=== PATIENT | female | born 1990 | race Caucasian/White ===

== ENCOUNTER 2019-05-05 19:54 | Emergency (ER) | payer MEDICAID ==
[~2019-05-05] VITALS: Ht 170.2 cm; Wt 60.0 kg
[2019-05-05] MEDS ORDERED: SODIUM CHLORIDE 0.9% 1,000 ML IV ONE (21:59)
[2019-05-05 22:43] LABS: BASOPHILS % 0.6 % (0.0-2.0); EOSINOPHILS % 2.7 % (0.0-5.0); HEMATOCRIT. 36.1 % (36.0-48.0); HEMOGLOBIN. 12.3 g/dL (12.0-16.0); LYMPHOCYTES % 31.9 % (20.0-50.0); MEAN CORPUSCULAR HEMOGLOBIN 32.5 pg (28.0-32.0); MEAN CORPUSCULAR VOLUME 95.5 fL (81.0-99.0); MEAN PLATELET VOLUME 8.2 fl (7.4-10.4); MONOCYTES % 5.3 % (2.0-8.0); NEUTROPHILS % 59.5 % (40.0-76.0); PLATELET 169 x1000/uL (130-400); RED BLOOD CELL COUNT 3.78 mill/uL (4.2-5.4); RED CELL DISTRIBUTION WIDTH 13.5 % (11.6-14.6)
[2019-05-05 22:49] LABS: CHLORIDE 111 mEq/L (98-107)
[2019-05-05 22:54] LABS: ETHANOL BLOOD < 10 mg/dL
[2019-05-05 23:34] LABS: CLARITY URINE CLOUDY (CLEAR); COLOR URINE YELLOW (YELLOW); KETONES URINE NEGATIVE (NEGATIVE); LEUKOCYTE ESTERASE URINE NEGATIVE (NEGATIVE); NITRITE URINE NEGATIVE (NEGATIVE); OCCULT BLOOD URINE 1+ (NEGATIVE); PH URINE 6.5 (4.5-8.0); PROTEIN URINE NEGATIVE (NEGATIVE); SPECIFIC GRAVITY URINE 1.013 (1.005-1.030); UROBILINOGEN URINE 0.2 E.U./dL (0.2-1.0)
[2019-05-05 23:55] LABS: *BENZODIAZEPINES SCREEN URINE NEGATIVE (NEGATIVE); *COCAINE SCREEN URINE NEGATIVE (NEGATIVE)
[2019-05-05 23:56] LABS: *AMPHETAMINES SCREEN URINE NEGATIVE (NEGATIVE); *BARBITURATES SCREEN URINE NEGATIVE (NEGATIVE); METHADONE URINE SCREEN NEGATIVE (NEGATIVE); OPIATES URINE SCREEN NEGATIVE (NEGATIVE); PHENCYCLIDINE URINE SCREEN NEGATIVE (NEGATIVE)
[2019-05-05 23:57] LABS: CANNABINOID URINE SCREEN PRESUMTIVE POSITIVE (NEGATIVE)
[2019-05-06] MEDS ORDERED: LORAZEPAM 2MG/ML CPJ IM STA (03:32)
[2019-05-06] MEDS ORDERED: LORAZEPAM 2MG/ML CPJ IM ONE ×2 (08:30→14:00)
[2019-05-06] MEDS ORDERED: DIPHENHYDRAMINE 50MG/ML VIAL IM ONE (08:30)
[2019-05-06] MEDS ORDERED: NICOTINE 7MG PATCH TD SCH (13:30)
[2019-05-06] MEDS ORDERED: HALOPERIDOL LACTATE 5MG/ML VIAL IM STA (18:35)
[2019-05-07] MEDS ORDERED: ONDANSETRON 4MG ODT PO STA (04:56)
[2019-05-07] MEDS ORDERED: ACETAMINOPHEN 325MG TABLET PO STA (04:56)
[2019-05-07] MEDS ORDERED: HALOPERIDOL LACTATE 5MG/ML VIAL IM ONE (06:15)
[2019-05-07] MEDS ORDERED: NICOTINE 21MG PATCH TD ONE (09:45)
[2019-05-07] MEDS ORDERED: LORAZEPAM 1MG TABLET PO ONE (16:00)
[2019-05-08 00:19] VITALS: BP 112/75
== END 2019-05-08 00:20 ==
LOC: ER 19:54
DX: T43.592A Poisoning by other antipsychotics and neuroleptics, intentional self-harm, initial encounter (principal); F32.9 Major depressive disorder, single episode, unspecified; F12.10 Cannabis abuse, uncomplicated; Y92.89 Other specified places as the place of occurrence of the external cause
CPT/HCPCS: 36415; 80053; 80305; 80307; 80320; 80329; 81003; 81025; 82962; 85025; 93005; 96372; 99285; J1200; J1630; J2060; J7030; Q0162; Z7610; G0480